=== PATIENT | male | born 1960 | race Hispanic/Latino ===

== ENCOUNTER 2017-08-02 09:19 | Emergency (ER) | payer BC ==
[~2017-08-02] VITALS: Ht 182.9 cm; Wt 80.6 kg
[~2017-08-02 09:19] MED LIST: DOXYCYCLINE HY100 M1 PO
[2017-08-02 10:35] LABS: HEMATOCRIT 43.9 % (38.0-50.0); HEMOGLOBIN 15.1 G/DL (12.5-16.6); MCH 30.3 PG (29.0-34.0); MCHC 34.4 G/DL (30.0-36.0); RBC DIS.WIDTH-CV 12.9 % (11.8-14.6); RBC DIS.WIDTH-SD 41.7 % (39-53); RED BLOOD COUNT 4.99 M/uL (4.00-5.50); WHITE BLOOD COUNT 5.5 K/uL (4.1-10.2)
[2017-08-02 10:44] LABS: ALBUMIN 4.5 g/dL (3.2-4.8); CHLORIDE 108 mEq/L (99-109); POTASSIUM 3.9 mEq/L (3.7-5.4); SODIUM 142 mEq/L (136-147)
[2017-08-02 10:46] LABS: GLUCOSE 103 mg/dL (70-99); TOTAL PROTEIN 7.8 g/dL (6.4-8.3)
[2017-08-02 10:48] LABS: TOTAL BILIRUBIN 1.3 mg/dL (0.0-1.0)
[2017-08-02 10:50] LABS: ALKALINE PHOSPHATASE 72 IU/L (3-129); CREATININE 1.1 mg/dL (0.6-1.3); GFR ESTIMATE (CALCULATED) > 59 mL/min/ (58.99-99999)
[2017-08-02 10:51] LABS: UREA NITROGEN (BUN) 16 mg/dL (9-23)
[2017-08-02 10:52] LABS: AST (GOT) 24 IU/L (2-34)
[2017-08-02 10:53] LABS: ALT (GPT) 19 IU/L (3-49); LIPASE 20 U/L (1.0-51.0)
[2017-08-02 11:10] LABS: PLAT.SUFFICIENCY DECREASED; PLATELET COUNT 147 K/uL (156-360)
[2017-08-02 11:39] LABS: APPEARANCE SL.HAZY ((CLEAR)); BILIRUBIN NEGATIVE; BLOOD SMALL; COLOR AMBER ((YELLOW)); GLUCOSE (STRIP) NEGATIVE; KETONES 5; LEUKOCYTES NEGATIVE; NITRITE NEGATIVE; PROTEIN (STRIP) 30; SPECIFIC GRAVITY 1.027 (1.000-1.030); UROBILINOGEN 0.2 MG/DL (0.2-1.0)
[2017-08-02 11:58] LABS: BACTERIA RARE /HPF; EPITHELIAL CELLS RARE /HPF; MUCUS 3+ /LPF; RED BLOOD CELLS 0-5 /HPF (0-5); UCUL ADDED? NO
[2017-08-02 11:59] LABS: WHITE BLOOD CELLS 0-5 /HPF (0-5)
[2017-08-02] MEDS ORDERED: ZOFRAN ODT4 MG PO (13:51)
[2017-08-02] MEDS ORDERED: CARAFATE100 MG/ML PO (13:51)
[2017-08-02 14:30] VITALS: BP 114/64
== END 2017-08-02 15:00 | disposition home or self-care (01) ==
LOC: EME 09:19
PROVIDERS: Emergency Medicine
DX: R11.2 Nausea with vomiting, unspecified (principal); R19.7 Diarrhea, unspecified; R10.9 Unspecified abdominal pain
CPT/HCPCS: 80053; 81003; 83605; 83690; 85027; 93005; 99281; 99285; J2405; J7030; J7040